=== PATIENT | female | born 1960 | race Caucasian/White ===

== ENCOUNTER → 2017-10-14 | Outpatient (CLI) | payer OTHER ==
[~2017-10-14] MED LIST: ATACAND HCT 321 EAC1 PO; FISH OIL 1,0001 EAC5 PO; GARLIC OIL1 EACH PO; LORTAB 7.5-3251 EACH PO; MULTIVITAMINS1 EAC7 PO; NEXIUM 40 MG CA40 M1 PO; ONDANSETRON HCL4 M2 SUBLING; TOPROL XL50 MG PO; TRIAMTERENE/HCT1 CA1 PO; VERAPAMIL ER180 MG PO
== END ==
LOC: RAD 09:38
DX: Z12.31 Encounter for screening mammogram for malignant neoplasm of breast (principal)

== ENCOUNTER → 2018-01-25 | Outpatient (CLI) | payer OTHER | LOC: RAD 15:45 | DX: M41.86 Other forms of scoliosis, lumbar region (principal); M25.78 Osteophyte, vertebrae; M16.11 Unilateral primary osteoarthritis, right hip; E04.1 Nontoxic single thyroid nodule ==

== ENCOUNTER → 2018-05-24 | Outpatient (CLI) | payer OTHER | LOC: RAD 16:27 | DX: M16.12 Unilateral primary osteoarthritis, left hip (principal) ==

== ENCOUNTER → 2019-09-12 | Outpatient (CLI) | payer OTHER | LOC: RAD 08:53 | DX: Z12.31 Encounter for screening mammogram for malignant neoplasm of breast (principal) ==

== ENCOUNTER → 2020-10-09 | Outpatient (CLI) | payer OTHER | LOC: BC 09:36 | PROVIDERS: ATTEND Nurse Practitioner | DX: Z12.31 Encounter for screening mammogram for malignant neoplasm of breast (principal) ==

== ENCOUNTER → 2021-07-08 | Outpatient (CLI) | payer OTHER | LOC: ULTRA 13:10 | PROVIDERS: ATTEND Nurse Practitioner | DX: E89.0 Postprocedural hypothyroidism (principal) ==

== ENCOUNTER → 2021-11-03 | Outpatient (CLI) | payer OTHER | LOC: BC 14:35 | PROVIDERS: ATTEND Nurse Practitioner | DX: Z12.31 Encounter for screening mammogram for malignant neoplasm of breast (principal); N64.89 Other specified disorders of breast ==